=== PATIENT | female | born 1960 | race Caucasian/White ===

== ENCOUNTER 2023-03-01 07:54 | Outpatient (REF) | payer BC, SELFPAY ==
[2023-03-01 08:25] LABS: MANUAL DIFF FLAG NO
[2023-03-01 08:35] LABS: Basophils Percent Auto 0.5 % (0-2); Eosinophils Absolute Auto 0.2 X10*3/uL (0.0-0.4); Eosinophils Percent Auto 3.2 % (0-4); Hematocrit 41.4 % (37.0-47.0); Hemoglobin 13.8 g/dl (12.0-16.0); Imm Gran Abs Auto 0.02 X10*3/uL (0.00-0.03); Imm Gran Pct Auto 0.3 % (0.0-0.4); Lymphocytes Percent Auto 31.9 % (20-40); Mean Corpuscular HGB Conc 33.3 g/dl (31.0-35.0); Mean Platelet Volume 9.1 fL (9.4-12.3); Monocytes Absolute Auto 0.6 X10*3/uL (0.1-1.2); Monocytes Percent Auto 9.3 % (2-11); Neutrophils Absolute Auto 3.4 x10*3/uL (2.0-8.3); Neutrophils Percent Auto 54.8 % (45-73); Platelet Count 231 X10*3/uL (160-400); Red Blood Count 4.45 X10*6/uL (4.20-5.50); Red Cell Distribution Width 12.3 % (11.0-16.0); White Blood Count 6.3 X10*3/uL (4.8-10.8)
[2023-03-01 08:52] LABS: Alanine Aminotransferase 17 U/L (0-31); Albumin Level 3.7 g/dL (3.5-5.0); Alkaline Phosphatase 87 U/L (39-117); Anion Gap 11 (12-20); Aspartate Amino Transferase 20 U/L (5-31); Bilirubin Total 0.4 mg/dL (0.0-1.0); Blood Urea Nitrogen 14 mg/dL (9-16); Calcium 9.1 mg/dL (8.4-10.2); Carbon Dioxide 25 mmol/L (22-29); Chloride 108 mmol/L (96-108); Cholesterol 242 mg/dL (<200); Estimated Glomerular Filt Rate > 60; Glucose Random 106 mg/dL (60-115); HDL Cholesterol 36 mg/dL (>40); LDL Cholesterol Calculated 174 mg/dL (<100); Potassium 4.2 mmol/L (3.3-5.1); Sodium 140 mmol/L (135-145); Triglycerides 164 mg/dL (<150)
== END 2023-03-01 07:55 | disposition home or self-care (01) ==
LOC: HO.LAB 07:54
PROVIDERS: PCP Internal Medicine; Visit Provider Internal Medicine
DX: K21.9 Gastro-esophageal reflux disease without esophagitis (principal); Z82.49 Family history of ischemic heart disease and other diseases of the circulatory system
CPT/HCPCS: 36415; 80053; 80061; 85025

== ENCOUNTER 2023-03-28 12:58 | Outpatient (REF) | payer BC, SELFPAY ==
--- NOTE | ~2023-03-28 | MM_ITS ---
EXAMINATION: MM SCREENING DIGITAL BREAST TOMOSYNTHESIS, BILATERAL CLINICAL INFORMATION: Screening. Asymptomatic. COMPARISON: Mammography: This study is compared with prior exams dating back to 2013. TECHNIQUE: Digital breast tomosynthesis is performed in both the craniocaudal and mediolateral oblique views along with computer-aided detection (CAD). Synthesized 2D images are generated from the tomosynthesis. FINDINGS: The breasts are almost entirely fatty (ACR BI-RADS breast composition Category a). There are no significant masses, abnormal calcifications, or other abnormalities. MM/MM tomosynthesis screening BI IMPRESSION: No mammographic evidence of malignancy. ASSESSMENT: BI-RADS BI-RADS 1 - Negative RECOMMENDATION: Routine annual mammography screening. 1 year F/U This examination should not preclude the clinical evaluation of a suspicious palpable abnormality. This patient's information was entered into a reminder system with a target due date for their next mammogram.
--- NOTE | ~2023-03-28 | MM_ITS ---
EXAMINATION: BONE DENSITOMETRY CLINICAL INDICATION: Menopause. COMPARISON: Previous BD dated 04/08/2015 and baseline BD dated 06/29/2011. TECHNIQUE: Using a [employer] DXA System (software version: 13.1) manufactured by [employer], dual-energy x-ray absorptiometry was performed of the lumbar spine and left hip. The images are of good technical quality. Summary results are attached. FINDINGS: LEFT FEMUR, NECK: Current: BMD 0.622 g/cm2, Z-score -2.2, T-score -3.0, osteoporosis. Prior: BMD 0.754 g/cm2. Baseline: BMD 0.795 g/cm2. LEFT FEMUR, TOTAL: Current: BMD 0.777 g/cm2, Z-score -1.4, T-score -1.8, osteopenia, 16.4% decrease from previous, 14.9% decrease from baseline (<5% change is not significant). Prior: BMD 0.929 g/cm2. Baseline: BMD 0.913 g/cm2. AP SPINE L1-L4: Current: BMD 0.950 g/cm2, Z-score -1.3, T-score -1.5, osteopenia, 8.6% decrease from previous, 10.4% decrease from baseline (<5% change is not significant). Prior: BMD 1.039 g/cm2. Baseline: BMD 1.060 g/cm2. IDENTIFIED RISK FACTORS: Menopause, family history (parent hip fracture), history of fracture (adult). HISTORY OF FRACTURE: Other. MEDICATIONS: None listed. MM/XR DEXA axial skeleton IMPRESSION: 1. DIAGNOSIS: Osteoporosis based on the lowest T-score value of -3.0 in the femoral neck applying World Health Organization criteria. 2. 10-YEAR FRACTURE RISK PREDICTION, FRAX: According to the guidelines, FRAX calculation should only be performed on patients in the osteopenia bone density category. Therefore, FRAX was not performed on this patient. 3. Treatment Recommendations: NOF guidelines recommend consideration for treatment in postmenopausal women and men age 50 and older presenting with the following: -A hip or vertebral (clinical or morphometric) fracture. -T-score less than or equal to -2.5 at the femoral neck or spine after appropriate evaluation to exclude secondary causes. -Low bone mass at the hip or spine and a 10-year fracture probability by FRAX of greater than or equal to 3% for hip fracture or greater than or equal to 20% for major osteoporotic fracture based on the [place] adapted WHO algorithm. 4. Other Recommendations: All treatment decisions require clinical judgment and consideration of individual patient factors, including patient preferences, comorbidities, previous drug use, risk factors not captured in the FRAX model (e.g. frailty, falls, vitamin D deficiency, increased bone turnover, interval significant decline in bone density) and possible under or overestimation of fracture risk by FRAX. Additional medical evaluation for secondary cause of low bone mineral density may be appropriate. FUTURE SCAN RECOMMENDATION: People with diagnosed cases of osteoporosis or at high risk for fracture should have regular bone mineral density tests. For patients eligible for Medicare, routine testing is allowed once every 2 years. The testing frequency can be increased to one year for patients who have rapidly progressing disease, those who are receiving or discontinuing medical therapy to restore bone mass, or have additional risk factors.
== END 2023-03-28 12:59 | disposition home or self-care (01) ==
LOC: HO.MAMMO 12:58
PROVIDERS: PCP Internal Medicine; Visit Provider Internal Medicine
DX: Z12.31 Encounter for screening mammogram for malignant neoplasm of breast (principal); Z13.820 Encounter for screening for osteoporosis; Z78.0 Asymptomatic menopausal state
CPT/HCPCS: 77063; 77067; 77080

== ENCOUNTER → 2023-03-28 13:15 | Outpatient (BNV) | payer BC, SELFPAY | PROVIDERS: PCP Internal Medicine; Visit Provider Radiology Diagnostic Radiology | DX: Z12.31 Encounter for screening mammogram for malignant neoplasm of breast (principal) | CPT/HCPCS: 77063; 77067 ==

== ENCOUNTER 2023-06-08 08:29 | Outpatient (REF) | payer BC, SELFPAY ==
[2023-06-08 11:02] LABS: Cholesterol 249 mg/dL (<200); HDL Cholesterol 37 mg/dL (>40); LDL Cholesterol Calculated 177 mg/dL (<100); Triglycerides 175 mg/dL (<150)
== END 2023-06-08 08:30 | disposition home or self-care (01) ==
LOC: HO.10HDL 08:29
PROVIDERS: Visit Provider Internal Medicine
DX: E78.00 Pure hypercholesterolemia, unspecified (principal)
CPT/HCPCS: 36415; 80061

== ENCOUNTER 2024-04-02 13:06 | Outpatient (REF) | payer BC, SELFPAY ==
--- NOTE | ~2024-04-02 | MM_ITS ---
EXAMINATION: MM SCREENING DIGITAL BREAST TOMOSYNTHESIS, BILATERAL CLINICAL INFORMATION: Screening. Asymptomatic. COMPARISON: Mammography: Comparison is made with available priors TECHNIQUE: Digital breast mammography with tomosynthesis is performed in both the craniocaudal and mediolateral oblique views along with computer-aided detection (CAD). FINDINGS: There are scattered areas of fibroglandular density (ACR BI-RADS breast composition Category b). There are no significant masses, abnormal calcifications, or other abnormalities. MM/MM tomosynthesis screening BI IMPRESSION: No mammographic evidence of malignancy. ASSESSMENT: BI-RADS BI-RADS 1 - Negative RECOMMENDATION: Routine annual mammography screening. 1 year F/U This examination should not preclude the clinical evaluation of a suspicious palpable abnormality. This patient's information was entered into a reminder system with a target due date for their next mammogram. Electronically signed by: Marley Aponte DO 04/14/2024 01:51 PM EDT
== END 2024-04-02 13:07 | disposition home or self-care (01) ==
LOC: HO.MAMMO 13:06
PROVIDERS: PCP Internal Medicine; Visit Provider Internal Medicine
DX: Z12.31 Encounter for screening mammogram for malignant neoplasm of breast (principal)
CPT/HCPCS: 77063; 77067

== ENCOUNTER → 2024-04-02 13:15 | Outpatient (BNV) | payer BC, SELFPAY | PROVIDERS: PCP Internal Medicine; Visit Provider Internal Medicine | DX: Z12.31 Encounter for screening mammogram for malignant neoplasm of breast (principal) | CPT/HCPCS: 77063; 77067 ==

== ENCOUNTER 2024-06-19 08:30 | Outpatient (REF) | payer BC, SELFPAY ==
--- NOTE | ~2024-06-19 | FL_ITS ---
EXAMINATION: XR FLUOROSCOPY UPPER GI WITH AIR CLINICAL INFORMATION: Reflux. COMPARISON: None TECHNIQUE: Fluoroscopic air contrast upper GI examination was performed utilizing standard techniques with thin and thick barium and effervescent granules. Numerous spot images were obtained. FINDINGS: Dual and single contrast images of the esophagus demonstrate normal caliber, contour, and mucosal pattern. There is moderate cricopharyngeal achalasia present. No masses or ulcerations are identified. A nonobstructing Schatzki's ring is present. Esophageal peristalsis was mildly disorganized. A small type I hiatal hernia is present. Significant gastroesophageal reflux seen up to the thoracic inlet. Dual contrast and single contrast images of the stomach demonstrated a normal contour. Evaluation of the gastric mucosa is limited due to poor coating of the barium. No obvious masses or ulcerations are seen. Contrast freely passed into the gastric antrum and duodenal bulb without delay. Single and air-contrast images of the duodenal bulb demonstrate no abnormality. The duodenal sweep has a normal appearance, course, and mucosal fold appearance. The imaged proximal jejunum has a normal fold pattern and caliber. FLUOROSCOPY TIME: 3 minutes 40 seconds Number of Spot Images: 11 Number of Cine: 12 DOSE AREA PRODUCT: 2652 uGy-m2 (microgray-meter squared) FL/FL upper GI w air IMPRESSION: 1. Moderate cricopharyngeal achalasia. 2. Nonobstructing Schatzki's ring. 3. Mildly disorganized esophageal peristalsis. 4. Small type I hiatal hernia with significant gastroesophageal reflux. 5. Limited evaluation of the gastric mucosa due to poor coating of the barium. No obvious masses or ulcerations are seen. This procedure was performed by Carlos Razo PA-C, and supervised by Dr. Swan Electronically signed by: Warren Swan MD 06/20/2024 04:37 PM [facility] [place]
== END 2024-06-19 08:31 | disposition home or self-care (01) ==
LOC: HO.XRAY 08:30
PROVIDERS: PCP Internal Medicine; Visit Provider Internal Medicine
DX: R13.10 Dysphagia, unspecified (principal)
CPT/HCPCS: 74246

== ENCOUNTER → 2024-06-19 08:34 | Outpatient (BNV) | payer BC, SELFPAY | PROVIDERS: PCP Internal Medicine; Visit Provider Physician Assistant Surgical | DX: K44.9 Diaphragmatic hernia without obstruction or gangrene (principal); K21.9 Gastro-esophageal reflux disease without esophagitis | CPT/HCPCS: 74246 ==

== ENCOUNTER 2024-07-28 14:58 | Outpatient (REF) | payer BC, SELFPAY ==
--- NOTE | ~2024-07-28 | XR_ITS ---
EXAMINATION: XR SHOULDER, LEFT CLINICAL INFORMATION: LEFT SHOULDER PAIN COMPARISON: None available. TECHNIQUE: AP external rotation, Grashey, scapular Y, and axillary views of the left shoulder. FINDINGS: The glenohumeral and AC joint spaces maintain normal. There is no visible acute fracture or dislocation seen. There is a soft tissue calcification superior to greater tuberosity likely calcific tendinitis. No acute fracture or dislocation seen. XR/XR shoulder LT min 2V IMPRESSION: Calcific tendinitis left shoulder. No visible acute fracture or dislocations Electronically signed by: Akash Horton MD 07/28/2024 04:45 PM EST RP
== END 2024-07-28 14:59 | disposition home or self-care (01) ==
LOC: HO.XRAY 14:58
PROVIDERS: PCP Internal Medicine; Visit Provider Internal Medicine
DX: M25.512 Pain in left shoulder (principal)
CPT/HCPCS: 73030

== ENCOUNTER → 2024-07-28 15:04 | Outpatient (BNV) | payer BC, SELFPAY | PROVIDERS: PCP Internal Medicine; Visit Provider Radiology Diagnostic Radiology | DX: M75.32 Calcific tendinitis of left shoulder (principal) | CPT/HCPCS: 73030 ==

== ENCOUNTER 2024-09-30 08:44 | Outpatient (AMB) | payer BC, SELFPAY ==
--- NOTE | 2024-09-30 08:52 | MHC.OFFVIS ---
Vital Signs 09/30/24 08:55 Height 5 ft 2 in Weight 198 lb BMI 36.2 Handedness Right Intake Visit Reasons: New Pt - Left shoulder pain Intake Note: Marleen is a 63 year old right hand dominant female who presents today as a new patient for a evaluation of her left shoulder pain. Patient states that her pain started on 07/25/24. She was seen by her PCP 3 days after her pain began and he gave her prednisone and Voltaren gel to relieve some of the pain which helped. Patient is doing well today and would like to know what her x rays show. Allergies No Known Allergies [No Known Allergies*] Allergy (Verified 09/30/24 08:55) HPI HPI New Pt - Left shoulder pain: Details: The patient is a 63-year-old right hand dominant female presenting with left shoulder pain. The shoulder pain began spontaneously on July 25, 2024, causing significant discomfort and restricted movement. The patient consulted her primary care provider three days post-onset and received prednisone and Voltaren gel, which alleviated symptoms considerably. Initially, the pain was severe enough to hinder shoulder mobility, but after treatment, there is minimal stiffness with nearly full range of motion. The patient?s history reveals no inciting incident or activity linked to the onset of the shoulder pain. [facility] Social History (Updated 09/30/24 @ 08:55 by Liseth Malave) Alcohol intake: current Alcohol intake frequency: holidays/special occasions only Patient Tobacco Use Status: Never used Tobacco Current occupational status: retired Current occupation: right hand dominant Review of Systems Const All systems reviewed & are unremarkable except as noted in HPI and below Physical Exam Vital Signs: BMI result Body Mass Index 36.2 Const General: cooperative, healthy appearing and no acute distress Resp Effort & Inspection: normal respiratory effort and able to speak in complete sentences Cardio Rate: regular rate Peripheral pulses: Peripheral pulses 2+ throughout Skin Lesions: no lesions Rashes: no rashes Extrem Other: Left shoulder: Normal to inspection. No ecchymosis, erythema, or edema. Full shoulder ROM in all planes. Negative cross-body reach. 4/5 strength with empty can. Negative drop arm. NVI. Assessment & Plan Assessment & Plan (1) Tendinitis of left rotator cuff: Code(s): M75.82 - Other shoulder lesions, left shoulder Category: Medical (2) Calcific tendinitis of left shoulder: Code(s): M75.32 - Calcific tendinitis of left shoulder Category: Medical Plan I reviewed the patient's radiographs, which were significant for a small calcification within the rotator cuff tendon, likely accounting for her shoulder pain. The positive response to prednisone and Voltaren gel supports this diagnosis, and no further intervention is needed unless symptoms recur. We discussed potential treatment options, including cortisone injections and physical therapy, should pain persist. She will followup p.r.n., sooner if needed. X-rays from 07/28/2024 of the left shoulder are available for my review today and reveal small calcification within the rotator cuff tendon. No acute fracture dislocation. Coding Level of Care Code New Pt Level 3 (28648) Diagnoses Tendinitis of left rotator cuff M75.82 Calcific tendinitis of left shoulder M75.32
[2024-09-30 08:55] VITALS: BMI 36.2
== END 2024-09-30 09:14 | disposition home or self-care (01) ==
LOC: HO.HOS 08:45
PROVIDERS: PCP Internal Medicine; Visit Provider Physician Assistant
DX: M75.82 Other shoulder lesions, left shoulder (principal); M75.32 Calcific tendinitis of left shoulder
CPT/HCPCS: 99203

== ENCOUNTER → 2024-09-30 08:44 | Outpatient (BNVA) | payer BC, SELFPAY | PROVIDERS: PCP Internal Medicine; Visit Provider Physician Assistant ==

== ENCOUNTER 2024-12-26 14:33 | Outpatient (AMB) | payer BC, SELFPAY ==
--- NOTE | 2024-12-26 14:40 | A.OFFPC_ITS ---
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 Hypercholesterolemia-last LDL 177, total cholesterol 280. Not currently on statin GERD-previously with dysphagia and underwent GI series showing cricopharyngeal achalasia, Schatzki's ring, mildly disorganized esophageal peristalsis and hiatal hernia with significant GERD. She did try to taper off omeprazole with quick recurrence of symptoms. Continues taking omeprazole 20 mg daily now Obesity-BMI 33.7. Has lost 20-25 lb since August on semaglutide. However, is concerned now her prescription will not be feasible actually was getting this through weight watchers. She does follow a healthy diet and continues to track her meals. Not exercising. Concerns: As above Health maintenance: Last screening mammogram 04/2024, no evidence of malignancy Last colonoscopy 12/2015 with 10 year follow-up advised Due for DEXA scan ROS: General: No fevers, malaise, unintentional weight loss HEENT: No blurred vision, diplopia. No sore throat, nasal congestion, rhinorrhea, sinus pain, ear pain Cardiovascular: No chest pain, palpitations, or leg edema Respiratory: No shortness of breath, wheezing, cough GI: see hpi MSK: No myalgia, back pain Neuro: No headaches, weakness, paresthesias Skin: No rashes or lesions EXAM: Constitutional - Awake and Alert, No apparent distress Eyes - PERRL Cardiovascular - S1S2, RRR, No edema Respiratory - Normal lung expansion, Normal respiratory effort, No respiratory distress, CTA bilaterally Extremities - no calf tenderness bilaterally, no swelling Skin - Warm/Dry Neurological - Alert & oriented x3 Psychological - Appropriate affect FOR[facility]LY [facility], [facility]1983 Medical History (Updated 12/26/24 @ 17:11 by JIM Hood) Obesity Hypercholesterolemia GERD (gastroesophageal reflux disease) Loss of peristalsis esophagus Schatzki ring of distal esophagus Cricopharyngeal achalasia Osteoporosis Social History (Updated 09/30/24 @ 08:55 by Liseth Malave) Alcohol intake: current Alcohol intake frequency: holidays/special occasions only Patient Tobacco Use Status: Never used Tobacco Current occupational status: retired Current occupation: right hand dominant Questionnaire PHQ-9 Over the last 2 weeks, how often have you been bothered by any of the following problems? 1. Little interest or pleasure in doing things: not at all 2. Feeling down, depressed, or hopeless: not at all 3. Trouble falling or staying asleep, or sleeping too much: not at all 4. Feeling tired or having little energy: several days 5. Poor appetite or overeating: several days 6. Feeling bad about yourself - or that you are a failure or have let yourself or your family down: not at all 7. Trouble concentrating on things, such as reading the newspaper or watching television: not at all 8. Moving or speaking so slowly that other people could have noticed. Or the opposite - being so fidgety or restless that you have been moving around a lot more than usual: not at all 9. Thoughts that you would be better off or of hurting yourself in some way: not at all Total score: 2 Depression Screening Interpretation: Negative Depression Screening Done: Yes 91850 - PHQ-9 Billing: Yes Source: Developed by Drs. Francisco De Leon, Stephenie Guerrero, Domingo Mae and colleagues, with an educational hamlet from [employer]. Thrive Questionnaire Date Thrive assessed: 12/26/24 I am a: Patient What is your living situation today?: I have a steady place to live Within the past 12 months, did the food you bought not last and you didn't have the money to get more?: Never true Within the past 12 months, did you worry whether your food would run out before you got money to buy more?: Never true Do you have trouble paying for medicines?: No Do you have trouble getting transportation to medical appointments?: No Do you have trouble paying your heating and electricity bill?: No Do you have trouble taking care of your child, family member or friend?: No Do you have trouble with day-to-day activities such as bathing, preparing meals, shopping, managing finances, etc.?: No Are you currently unemployed and looking for a job?: No Are you interested in more education?: No THRIVE Score: 0 MARIA LUZ-7 AMB Questionnaire MARIA LUZ-7 Date MARIA LUZ - 7 assessed: 12/26/24 Feeling nervous, anxious, or on edge: 0 = Not at all Not being able to stop or control worryin = Not at all Worrying too much about different things: 0 = Not at all Trouble relaxin = Not at all Being so restless that it is hard to sit still: 0 = Not at all Becoming easily annoyed or irritable: 0 = Not at all Feeling afraid as if something awful might happen: 0 = Not at all Total MARIA LUZ-7 score (0-4 normal; 5-9 mild; 10-14 moderate; 15-21 severe): 0 Source: Developed by Drs. Francisco De Leon, Stephenie Guerrero, Domingo Mae and colleagues, with an educational hamlet from [employer]. Physical exam (Primary Care) Vital Signs: Last Vital Signs Temp 97.5 F 12/26/24 15:00 Pulse 105 H 12/26/24 15:00 BP 112/74 12/26/24 15:00 BMI result Body Mass Index 33.7 Tobacco/Smoking Status: Tobacco use Status Patient Tobacco Use Status Never used Tobacco 12/26/24 14:42 PHQ-9: PHQ-9 Score PHQ-9: Total score 2 12/26/24 16:09 Depression Screening Interpretation: Negative Thrive Assessment: Date of Thrive Assessment Date Thrive assessed 12/26/24 12/26/24 15:10 Coding Level of Care Code New Pt Level 4 (06259) Complex EM visit Add On G2211 Diagnoses GERD (gastroesophageal reflux disease) K21.9 Hypercholesterolemia E78.00 Obesity E66.9 Additional Codes PHQ-9 - 77276 - PHQ-9 Billing: Yes ([id number]) Assessment & Plan Assessment & Plan (1) GERD (gastroesophageal reflux disease): Code(s): K21.9 - Gastro-esophageal reflux disease without esophagitis Category: Medical Plan: Reviewed last Upper GI series with multiple abnormality. Continue ppi. Referred to GI (2) Hypercholesterolemia: Code(s): E78.00 - Pure hypercholesterolemia, unspecified Category: Medical Plan: Lipid panel ordered. ASCVD risk score to be calculated pending results of study. Recommend diet low in saturated fat and highly processed foods. Weight loss efforts (3) Obesity: Code(s): E66.9 - Obesity, unspecified Category: Medical Plan: Commended on weight loss efforts thus far. Encouraged to continue. Plan Follow up in 6 months. Labs to be completed prior to visit today. Due for DEXA scan which is ordered and referred to GI Orders: Orders Complete Blood Count Auto Diff Today M81.0 - Age-related osteoporosis without current pathological fracture, Z13.1 - Encounter for screening for diabetes mellitus, Z13.220 - Encounter for screening for lipoid disorders Lipid Panel Today M81.0 - Age-related osteoporosis without current pathological fracture, Z13.1 - Encounter for screening for diabetes mellitus, Z13.220 - Encounter for screening for lipoid disorders Liver Panel Today M81.0 - Age-related osteoporosis without current pathological fracture, Z13.1 - Encounter for screening for diabetes mellitus, Z13.220 - Encounter for screening for lipoid disorders Hemoglobin A1c Today M81.0 - Age-related osteoporosis without current pathological fracture, Z13.1 - Encounter for screening for diabetes mellitus, Z13.220 - Encounter for screening for lipoid disorders Vitamin D 25-OH Total Today M81.0 - Age-related osteoporosis without current pathological fracture, Z13.1 - Encounter for screening for diabetes mellitus, Z13.220 - Encounter for screening for lipoid disorders TSH reflex Free T4 Today M81.0 - Age-related osteoporosis without current pathological fracture, Z13.1 - Encounter for screening for diabetes mellitus, Z13.220 - Encounter for screening for lipoid disorders Basic Metabolic Panel Today M81.0 - Age-related osteoporosis without current pathological fracture, Z13.1 - Encounter for screening for diabetes mellitus, Z13.220 - Encounter for screening for lipoid disorders XR DEXA axial skeleton Today M81.0 - Age-related osteoporosis without current pathological fracture Referrals Gastroenterology Referral K21.9 - Gastro-esophageal reflux disease without esophagitis, K22.0 - Achalasia of cardia, K22.2 - Esophageal obstruction
--- OUTSIDE RECORDS SUMMARY | 2024-12-26 14:54 | XMS_ITS | Patient Health Record ---
Author Organization [facility] Address [address] [place] [address] Care Team Providers Care Still Operator Whiskey Name Role Phone Osiel Tsang MD Primary Care Provider Francisco Tracy Unavailable [phone] Reason For Referral No Information Medications Medication SIG (Take, Route, Fr equency, Duration) Notes Start Date End Date Status Suprep Bowel Prep 1 kit as directed Oral ly as directed for 1 dose 07/11/2015 Active Problems Problem Type SNOMED Code ICD Code Onset Dates Problem Status W/U Status Risk Notes Problem [id number] Encounter for screening for malignant neoplasm of colon (Z12.11) Active confirmed Problem Screening for malignant neoplasm of rectum (035688504) Encounter for screening for malignant neoplasm of rectum (Z12.12) Active confirmed Problem 65775880 Preprocedural examination (Z01.818) Active confirmed Plan Of Treatment Pending Test Test Name Order Date GI BIOPSY 12/01/2015 Future Test Test Name Order Date COLONOSCOPY 07/08/2015 Insurance Providers Payer Name Payer Address Payer Phone Subscriber Number Group Number Insured Name Patient Relationship to Insured Coverage Start Date Coverage End Date [facility] [address] [place], [place] [id number] TRACY GALINDO Self - patient is the insured Medical (General) History Medical History History ICD Code 2003-- patient had DVT in right leg-elizabeth zander with coumadin-has some edema Denies [place],DM,CVA,Lung disease,renal dise ase Surgical History Surgery Date(Month/Year) C-sections
[2024-12-26 15:00] VITALS: BP 112/74; PULSE 105; TEMP 36.4; BMI 33.7
== END 2024-12-26 16:13 | disposition home or self-care (01) ==
LOC: HO.HMCHD 14:34
PROVIDERS: PCP Internal Medicine; Visit Provider Physician Assistant
DX: K21.9 Gastro-esophageal reflux disease without esophagitis (principal); E78.00 Pure hypercholesterolemia, unspecified; E66.9 Obesity, unspecified

== ENCOUNTER → 2024-12-26 14:33 | Outpatient (BNVA) | payer BC, SELFPAY | PROVIDERS: PCP Internal Medicine; Visit Provider Physician Assistant | DX: K21.9 Gastro-esophageal reflux disease without esophagitis (principal); E78.00 Pure hypercholesterolemia, unspecified; E66.9 Obesity, unspecified; Z68.33 Body mass index [BMI] 33.0-33.9, adult; Z13.31 Encounter for screening for depression; Z13.30 Encounter for screening examination for mental health and behavioral disorders, unspecified | CPT/HCPCS: 96127 ==

== ENCOUNTER 2024-12-29 07:41 | Outpatient (REF) | payer MEDICARE, BC, SELFPAY ==
--- OUTSIDE RECORDS SUMMARY | 2024-12-29 07:45 | XMS_ITS | Patient Health Record ---
Author Organization [facility] Address [address] [place] [address] Care Team Providers Care Sales Representative Jewelry Name Role Phone Osiel Tsang MD Primary Care Provider Francisco Tracy Unavailable [phone] Reason For Referral No Information Medications Medication SIG (Take, Route, Fr equency, Duration) Notes Start Date End Date Status Suprep Bowel Prep 1 kit as directed Oral ly as directed for 1 dose 07/11/2015 Active Problems Problem Type SNOMED Code ICD Code Onset Dates Problem Status W/U Status Risk Notes Problem [id number] Encounter for screening for malignant neoplasm of colon (Z12.11) Active confirmed Problem Encounter for screening for malignant neoplasm of rectum (Z12.12) Active confirmed Problem 43241671 Preprocedural examination (Z01.818) Active confirmed Plan Of Treatment Pending Test Test Name Order Date GI BIOPSY 12/01/2015 Future Test Test Name Order Date COLONOSCOPY 07/08/2015 Insurance Providers Payer Name Payer Address Payer Phone Subscriber Number Group Number Insured Name Patient Relationship to Insured Coverage Start Date Coverage End Date [facility] [address] [place], [place] [id number] [phone] [id number] TRACY GALINDO Self - patient is the insured Medical (General) History Medical History History ICD Code 2003-- patient had DVT in right leg-elizabeth zander with coumadin-has some edema Denies [place],DM,CVA,Lung disease,renal dise ase Surgical History Surgery Date(Month/Year) C-sections 1981/1982
[2024-12-29 07:53] LABS: MANUAL DIFF FLAG NO
[2024-12-29 08:56] LABS: Basophils Percent Auto 0.3 % (0-2); Eosinophils Absolute Auto 0.2 X10*3/uL (0.0-0.4); Eosinophils Percent Auto 2.7 % (0-4); Hematocrit 39.9 % (37.0-47.0); Hemoglobin 13.4 g/dl (12.0-16.0); Imm Gran Abs Auto 0.01 X10*3/uL (0.00-0.03); Imm Gran Pct Auto 0.2 % (0.0-0.4); Lymphocytes Absolute Auto 1.8 X10*3/uL (1.2-4.9); Lymphocytes Percent Auto 30.4 % (20-40); Mean Corpuscular HGB Conc 33.6 g/dl (31.0-35.0); Mean Corpuscular Hemoglobin 30.3 pg (27.0-33.0); Mean Corpuscular Volume 90.3 fL (80.0-98.0); Mean Platelet Volume 9.9 fL (9.4-12.3); Monocytes Absolute Auto 0.5 X10*3/uL (0.1-1.2); Monocytes Percent Auto 8.9 % (2-11); Neutrophils Absolute Auto 3.4 x10*3/uL (2.0-8.3); Neutrophils Percent Auto 57.5 % (45-73); Platelet Count 246 X10*3/uL (160-400); Red Blood Count 4.42 X10*6/uL (4.20-5.50); White Blood Count 5.9 X10*3/uL (4.8-10.8)
[2024-12-29 09:09] LABS: Estimated Average Glucose 105 mg/dL; Hemoglobin A1c % 5.3 % (<6.0)
[2024-12-29 09:37] LABS: Alanine Aminotransferase 16 U/L (0-31); Albumin Level 3.9 g/dL (3.5-5.0); Alkaline Phosphatase 81 U/L (39-117); Anion Gap 10 (12-20); Aspartate Amino Transferase 23 U/L (5-31); Bilirubin Direct 0.1 mg/dL (0.0-0.5); Bilirubin Total 0.4 mg/dL (0.0-1.0); Blood Urea Nitrogen 11 mg/dL (9-16); Calcium 8.8 mg/dL (8.4-10.2); Carbon Dioxide 27 mmol/L (22-29); Chloride 108 mmol/L (96-108); Cholesterol 205 mg/dL (<200); Estimated Glomerular Filt Rate > 60; Glucose Random 109 mg/dL (60-115); HDL Cholesterol 30 mg/dL (>40); LDL Cholesterol Calculated 149 mg/dL (<100); Potassium 3.7 mmol/L (3.3-5.1); Sodium 141 mmol/L (135-145); Total Protein 6.9 g/dL (6.5-8.0); Triglycerides 131 mg/dL (<150)
[2024-12-29 09:57] LABS: TSH reflex Free T4 1.39 uIU/mL (0.32-4.0); Vitamin D 25-OH Total 17.5 ng/mL (>30)
== END 2024-12-29 07:42 | disposition home or self-care (01) ==
LOC: HO.LAB 07:41
PROVIDERS: PCP Internal Medicine; Visit Provider Physician Assistant
DX: M81.0 Age-related osteoporosis without current pathological fracture (principal); Z13.1 Encounter for screening for diabetes mellitus; Z13.220 Encounter for screening for lipoid disorders
CPT/HCPCS: 36415; 80048; 80061; 80076; 82306; 83036; 84443; 85025

== ENCOUNTER 2025-04-08 13:00 | Outpatient (REF) | payer MEDICARE, BC, SELFPAY ==
--- NOTE | ~2025-04-08 | MM_ITS ---
EXAMINATION: DXA BONE DENSITY AXIAL HISTORY: M81.0 - Age-related osteoporosis without current pathological fracture TECHNIQUE: [facility] Dual energy absorptiometry (DEXA) of the lumbar spine, total left hip, and femoral neck was performed. COMPARISON: Comparison is made with the prior examination dated 03/08/2023. FINDINGS: The bone mineral density of the lumbar spine is 0.991 g/cm2, corresponding to a T-score of -1.6, and a Z-score of -0.4. This is indicative of osteopenia. This represents a BMD change of 4.3% compared to the prior exam. This is statistically significant. The bone mineral density of the left total hip is 0.903 g/cm2, corresponding to a T-score of -0.8, and a Z-score of 0.1. This is indicative of normal bone mineral density. This represents a BMD change of 16.2% compared to the prior exam. This is statistically significant. The bone mineral density of the left femoral neck is 0.796 g/cm2, corresponding to a T-score of -1.7, and a Z-score of -0.5. This is indicative of osteopenia. This represents a BMD change of 28.0% compared to the prior exam. FRACTURE RISK: The FRAX index suggests a ten year probability of major osteoporotic fracture of 28.3%, and of hip fracture 2.1%. MM/XR DEXA axial skeleton IMPRESSION: Based on bone mineral density, and according to World Health Organization (WHO) criteria, the diagnosis is consistent with osteopenia. Statistically, 68% of repeat scans fall within 1 SD (+/- 0.010 g/cm2 for AP spine L1-L4) and 1 SD (+/- 0.012 g/cm2 for femur total) FRAX is a trademark of the [employer] [employer] [employer], a World Health Organization (WHO) Collaborating Center. Electronically signed by: Francisco Roth MD 04/08/2025 01:49 PM EDT
== END 2025-04-08 13:01 | disposition home or self-care (01) ==
LOC: HO.MAMMO 13:00
PROVIDERS: PCP Physician Assistant; Visit Provider Physician Assistant
DX: Z12.31 Encounter for screening mammogram for malignant neoplasm of breast (principal); M81.0 Age-related osteoporosis without current pathological fracture
CPT/HCPCS: 77063; 77067; 77080

== ENCOUNTER → 2025-04-08 13:02 | Outpatient (BNV) | payer MEDICARE, BC, SELFPAY | PROVIDERS: PCP Physician Assistant; Visit Provider Radiology Diagnostic Radiology | DX: E28.39 Other primary ovarian failure (principal) | CPT/HCPCS: 77080 ==

== ENCOUNTER 2025-06-10 09:27 | Outpatient (REF) | payer MEDICARE, BC, SELFPAY ==
[2025-06-10 11:07] LABS: Alanine Aminotransferase 19 U/L (0-31); Albumin Level 4.1 g/dL (3.5-5.0); Alkaline Phosphatase 118 U/L (39-117); Anion Gap 11 (12-20); Aspartate Amino Transferase 28 U/L (5-31); Blood Urea Nitrogen 13 mg/dL (9-16); Calcium 9.3 mg/dL (8.4-10.2); Carbon Dioxide 28 mmol/L (22-29); Chloride 106 mmol/L (96-108); Cholesterol 131 mg/dL (<200); Estimated Glomerular Filt Rate > 60; HDL Cholesterol 35 mg/dL (>40); Potassium 4.5 mmol/L (3.3-5.1); Sodium 140 mmol/L (135-145); Total Protein 7.4 g/dL (6.5-8.0); Triglycerides 91 mg/dL (<150)
== END 2025-06-10 09:28 | disposition home or self-care (01) ==
LOC: HO.10HDL 09:27
PROVIDERS: Visit Provider Physician Assistant
DX: E78.00 Pure hypercholesterolemia, unspecified (principal)
CPT/HCPCS: 36415; 80048; 80061; 80076